=== PATIENT | male | born 1975 | race African-American/Black ===

== ENCOUNTER 2022-03-23 11:28 | Emergency (ER) | payer MEDICAID ==
[~2022-03-23] VITALS: Ht 185.4 cm; Wt 127.3 kg
[2022-03-23 12:03] VITALS: BP 125/100
== END 2022-03-23 13:16 | disposition home or self-care (01) ==
LOC: ER 11:30
DX: T59.811A Toxic effect of smoke, accidental (unintentional), initial encounter (principal); J68.3 Other acute and subacute respiratory conditions due to chemicals, gases, fumes and vapors; Y92.89 Other specified places as the place of occurrence of the external cause
CPT/HCPCS: 99281

== ENCOUNTER 2022-05-31 17:30 | Emergency (ER) | payer MEDICAID ==
[~2022-05-31] VITALS: Ht 185.4 cm; Wt 136.4 kg
[2022-05-31 17:51] VITALS: BP 182/121
[2022-05-31] MEDS ORDERED: PENICILLIN G BENZATHINE 2,400,000 UNIT/4 ML SYRINGE IM ONE (18:30)
== END 2022-05-31 19:03 | disposition home or self-care (01) ==
LOC: ER 17:31
DX: Z02.89 Encounter for other administrative examinations (principal); A53.9 Syphilis, unspecified; Z60.2 Problems related to living alone
CPT/HCPCS: 96372; 99283; J0561

== ENCOUNTER 2023-04-03 14:25 | Emergency (ER) | payer MEDICAID ==
[~2023-04-03] VITALS: Ht 182.9 cm; Wt 136.4 kg
[~2023-04-03 14:25] MED LIST: ASPI-1264 PO; CARV-50 PO; LISI40TA13 PO
[2023-04-03 14:33] VITALS: TEMP 98.4
[2023-04-03] MEDS ORDERED: DOXY100C77 PO ×3 (15:44→17:51)
[2023-04-03 16:27] VITALS: BP 165/112; PULSE 74; RESP 18; O2SAT 99
[2023-04-08 12:50] LABS: RPR, QUANT. 1:2 High
== END 2023-04-03 16:48 | disposition home or self-care (01) ==
LOC: ER 14:25
DX: L02.211 Cutaneous abscess of abdominal wall (principal); I10 Essential (primary) hypertension; Z79.899 Other long term (current) drug therapy; Z91.030 Bee allergy status
CPT/HCPCS: 36415; 86592; 99283; A6449

== ENCOUNTER 2023-04-18 10:32 | Emergency (ER) | payer MEDICAID ==
[~2023-04-18] VITALS: Ht 185.4 cm; Wt 136.4 kg
[~2023-04-18 10:32] MED LIST changes: +DOXY100C77 PO
[2023-04-18 12:07] LABS: HEMOGLOBIN 9.7 g/dl (14.0-17.9); MEAN CORPUSCULAR HGB CONC 30.3 g/dL (33.0-36.5); MEAN PLATELET VOLUME 7.6 FL (7.4-10.4); RED BLOOD COUNT 4.05 X10'6 (4.70-6.10); WHITE BLOOD COUNT 6.9 X10'3 (4.5-11.0)
[2023-04-18 12:09] LABS: MEAN CORPUSCULAR VOLUME 79.1 FL (78-98); PLATELET COUNT 488 X10'3 (140-440); RED CELL DISTRIBUTION WIDTH 25.3 % (11.5-14.5)
[2023-04-18 12:17] LABS: ALANINE AMINOTRANSFERASE 27 U/L (12-78); ALBUMIN 3.8 G/DL (3.4-5.0); ALBUMIN/GLOBULIN RATIO 0.9 (1.1-1.5); ALKALINE PHOSPHATASE 65 IU/L (46-116); ANION GAP 9 (8-16); ASPARTATE AMINO TRANSFERASE 19 U/L (10-37); BILIRUBIN,TOTAL 0.5 MG/DL (0.1-1.0); BLOOD UREA NITROGEN 7 MG/DL (7-18); BUN/CREATININE RATIO 6.4 (10.0-20.0); CALCIUM 9.4 MG/DL (8.5-10.1); CHLORIDE 96 MMOL/L (99-107); GLUCOSE 101 MG/DL (70-104); POTASSIUM 3.6 MMOL/L (3.5-5.1); SODIUM 131 MMOL/L (135-145); TOTAL CARBON DIOXIDE 25.7 MMOL/L (24-32); TOTAL PROTEIN 8.1 G/DL (6.4-8.2); eCRCL 93 ML/MIN; eGFR 86 ML/MIN
[2023-04-18 12:24] LABS: PRO BRAIN NATRIURETIC PEPTIDE 168 PG/ML (0-125)
[2023-04-18 12:47] VITALS: PULSE 77; RESP 18; O2SAT 100
[2023-04-18 13:01] VITALS: BP 160/82
[2023-04-18 13:41] LABS: TOTAL CELLS COUNTED 100
[2023-04-18 13:42] LABS: ANISOCYTOSIS 3+; ELLIPTOCYTES FEW; HYPOCHROMASIA 1+; MICROCYTOSIS 1+; PLATELET ESTIMATE INCREASED; POLYCHROMASIA 2+
== END 2023-04-18 13:28 | disposition home or self-care (01) ==
LOC: ER 10:32
DX: K64.9 Unspecified hemorrhoids (principal); I10 Essential (primary) hypertension; Z91.030 Bee allergy status; Z79.82 Long term (current) use of aspirin; Z79.899 Other long term (current) drug therapy
CPT/HCPCS: 71045; 80053; 83880; 84484; 85007; 85025; 93005; 99285

== ENCOUNTER 2023-10-23 10:02 | Emergency (ER) | payer MEDICAID ==
[~2023-10-23] VITALS: Ht 185.4 cm; Wt 125.1 kg
[2023-10-23] MEDS ORDERED: ANUHCR RC (12:10)
[2023-10-23] MEDS ORDERED: CARV6.2555 PO (12:10)
[2023-10-23] MEDS ORDERED: LISI40TA13 PO (12:10)
[2023-10-23 12:22] VITALS: BP 165/126; PULSE 88; RESP 16; TEMP 98.1; O2SAT 100
== END 2023-10-23 12:29 | disposition home or self-care (01) ==
LOC: ER 10:02
DX: I10 Essential (primary) hypertension (principal); K64.4 Residual hemorrhoidal skin tags; K64.8 Other hemorrhoids; Z91.030 Bee allergy status; Z79.82 Long term (current) use of aspirin; Z79.2 Long term (current) use of antibiotics; Z79.899 Other long term (current) drug therapy
CPT/HCPCS: 99282

== ENCOUNTER 2023-10-26 09:36 | Emergency (ER) | payer MEDICAID ==
[~2023-10-26] VITALS: Ht 185.4 cm; Wt 113.6 kg
[~2023-10-26 09:36] MED LIST changes: +ANUHCR RC; +CARV6.2555 PO
[2023-10-26 09:49] VITALS: BP 160/107; PULSE 62; RESP 18; TEMP 98; O2SAT 98
== END 2023-10-26 10:49 | disposition home or self-care (01) ==
LOC: ER 09:36
DX: K64.9 Unspecified hemorrhoids (principal); I10 Essential (primary) hypertension; Z91.030 Bee allergy status; Z79.82 Long term (current) use of aspirin; Z79.899 Other long term (current) drug therapy; Z79.2 Long term (current) use of antibiotics
CPT/HCPCS: 99281

== ENCOUNTER 2024-12-14 12:39 | Emergency (ER) | payer MEDICAID ==
[~2024-12-14] VITALS: Ht 185.4 cm; Wt 137.5 kg
[~2024-12-14 12:39] MED LIST changes: +DOXY-347 PO; -DOXY100C77 PO
[2024-12-14 12:42] VITALS: BP 157/101; PULSE 71; RESP 16; TEMP 98.2; O2SAT 94
== END 2024-12-14 13:50 | disposition home or self-care (01) ==
LOC: ER 12:40
DX: Z00.8 Encounter for other general examination (principal); I10 Essential (primary) hypertension; Z79.82 Long term (current) use of aspirin
CPT/HCPCS: 99281